=== PATIENT | male | born 1950 | race Caucasian/White ===

== ENCOUNTER 2016-07-01 13:47 | Outpatient (CLI) | payer MEDICARE, OTHER | END 2016-07-01 13:48 | disposition home or self-care (01) | DX: G47.33 Obstructive sleep apnea (adult) (pediatric) (principal) | CPT/HCPCS: 99214; G0463 ==

== ENCOUNTER 2016-08-31 13:16 | Outpatient (CLI) | payer MEDICARE, OTHER | END 2016-08-31 13:17 | disposition home or self-care (01) | DX: G47.33 Obstructive sleep apnea (adult) (pediatric) (principal) | CPT/HCPCS: 99214; G0463 ==

== ENCOUNTER 2017-02-01 15:47 | Outpatient (CLI) | payer MEDICARE, OTHER | END 2017-02-01 15:48 | disposition home or self-care (01) | LOC: SC 15:47 | PROVIDERS: ATTEND Nurse Practitioner Family | DX: G47.33 Obstructive sleep apnea (adult) (pediatric) (principal) | CPT/HCPCS: 99214; G0463; 99212 ==

== ENCOUNTER 2017-07-27 13:15 | Outpatient (CLI) | payer MEDICARE, OTHER | END 2017-07-27 13:16 | disposition home or self-care (01) | LOC: SC 13:15 | PROVIDERS: ATTEND Nurse Practitioner Family | DX: G47.33 Obstructive sleep apnea (adult) (pediatric) (principal) | CPT/HCPCS: 99214; G0463; 99212 ==

== ENCOUNTER 2018-07-27 13:43 | Outpatient (CLI) | payer MEDICARE, OTHER | END 2018-07-27 13:44 | disposition home or self-care (01) | LOC: SC 13:43 | PROVIDERS: ATTEND Nurse Practitioner Family | DX: G47.33 Obstructive sleep apnea (adult) (pediatric) (principal) | CPT/HCPCS: 99213; G0463; 99212 ==

== ENCOUNTER 2019-10-04 11:56 | Outpatient (CLI) | payer MEDICARE, OTHER ==
--- NOTE | 2019-10-04 11:51 | SLEEP CARE CONSULTATION ---
Information from patient questionnaire entered by Sonia Moore. I have reviewed and concur with the information entered by Sonia Moore. This document represents the service I personally performed and the decisions made by me, Angi Sheriff, RN, MSN, GEOPHYSICAL SUPPORT SPECIALIST. History of Present Illness Service Date and Time: 10/04/2019 1130 Previous diagnosis: Moderate, Obstructive Sleep Apnea-Hypopnea Syndrome AHI: 22.4 (in 2016) Reason for follow up: annual (last seen 2019) Equipment type: CPAP Equipment obtained from: [employer] (in [place] - getting supplies as needed) Mask style: Nasal pillows Backup mask available: Yes (old mask ) Last cushion change: 3 weeks ago Prior sleep studies: Yes Year and Where: 2016 - [facility] Type of Sleep Study: Polysomnography CPAP Compliance Data - Data Reviewed with Patient Average duration of nightly device use: 6.25 Compliance rate %: 99.4 (180 days) Current pressure setting (cmH2O): 8-10 Humidity settin Heated hose settin Average residual AHI: 2.7 Average large leak: 10 sec Subjective Patient concerns: denies: aerophagia, mask discomfort, air blowing in eyes, mask leak noise, condensation in mask/hose, nasal congestion, dry mouth, nose, throat, epistaxis, other Observed to snore while using device: No Current pressure setting perceived as: comfortable On therapy, patient: reports: sleeping better, awakening more refreshed, being more awake and alert during the day, more rested overall. denies: drowsiness while driving Initial [place] Sleepiness Scale score: 12 (in 2016) Allergies and Home Medications Home medication list reviewed: No (no changes) Review of Systems Review of systems same as previous: Yes Physical Exam Height: 6 ft 4 in Weight: 298 lb (home weight) Body Mass Index: 36.2 BMI Classification: Obese Impression and Plan 1. Obstructive Sleep Apnea-Hypopnea Syndrome, moderate, with good treatment compliance and good apnea control. On CPAP therapy, the patient has better sleep quality and is more rested overall. Patient is very pleased with CPAP treatment benefit. Currently patients BMI is 36.2 obesity class. I reviewed how obesity increases the risk of apnea, CPAP pressure requirements and overall health risks especially cardiovascular and diabetes. Thus patient is advised to lose weight. A diet consultation can be helpful in achieving optimal weight loss goals. Patient encouraged to discuss their weight loss goals with their PCP and consider a referral to a cma or lpn. The patient's CPAP pressure range should accommodate some weight loss. Symptoms to report for additional pressure adjustment discussed.Patient's apnea severity and rationale for treatment to reduce apnea, improve sleep quality and reduce hypertension, cardiovascular and cerebrovascular events was reviewed. * Continue auto CPAP pressure at 8-10 cmH2O * Notify me if snoring with mask or feeling that the pressure is too much or too little * Attempt to lose weight * Call this office if any problems using CPAP * Return for follow up in 1 year , or sooner if concerns arise Visit Type: Telehealth Phone (to reduce risk of Covid 19 exposure) Patient Location: Home Location of Provider: Home Patient agrees and consents to this telehealth visit type: Yes Patient agrees to have their insurance billed: Yes Time Spent with Patient (minutes): 8 Provider Statement: I spent 100% of the Telehealth Phone Call with the patient with greater than 50% spent counseling the patient and coordination of care.
== END 2019-10-04 11:57 | disposition home or self-care (01) ==
LOC: SC 11:56
PROVIDERS: ATTEND Nurse Practitioner Family
DX: G47.33 Obstructive sleep apnea (adult) (pediatric) (principal); E66.9 Obesity, unspecified; Z68.36 Body mass index [BMI] 36.0-36.9, adult

== ENCOUNTER 2020-10-02 11:00 | Outpatient (CLI) | payer MEDICARE, OTHER ==
--- NOTE | 2020-10-02 11:20 | SLEEP CARE CONSULTATION ---
Information from patient questionnaire entered by Sonia Moore. I have reviewed and concur with the information entered by Sonia Moore. This document represents the service I personally performed and the decisions made by , Glory Rascon ARNP. History of Present Illness Service Date and Time: 10/02/2020 1100 Previous diagnosis: Moderate, Obstructive Sleep Apnea-Hypopnea Syndrome AHI: 22.4 (in 2015) Reason for follow up: annual (last seen 09/2019) Equipment type: CPAP [facility]getting [facility] as needed) Mask style: Nasal pillows Backup mask available: Yes (old mask) Last cushion change: 3 weeks Prior sleep studies: Yes Year and Where: 2016 - [facility] Sleep HPI additional information: ASHU HUSSEIN was diagnosed to have moderate, AHI 22.4, obstructive sleep apnea- hypopnea syndrome and returned today for CPAP therapy annual follow-up. CPAP Compliance Data - Data Reviewed with Patient Average duration of nightly device use: 8 hr 29 days Compliance rate %: 98.9 (180 days) Current pressure setting (cmH2O): 8-10 Humidity settin Heated hose settin Average residual AHI: 2.3 Average large leak: 11 sec Subjective Missed days of use due to: reports: other (power outage) Patient concerns: denies: aerophagia, mask discomfort, air blowing in eyes, mask leak noise, condensation in mask/hose, nasal congestion, dry mouth, nose, throat, epistaxis, other Observed to snore while using device: No Current pressure setting perceived as: comfortable On therapy, patient: reports: sleeping better, awakening more refreshed, being more awake and alert during the day, more rested overall. denies: drowsiness while driving Initial [place] Sleepiness Scale score: 12 (in 2016) Current [place] Sleepiness Scale score: 5 Allergies and Home Medications Home medication list reviewed: Yes (no new meds) Review of Systems Review of systems same as previous: Yes (no changes) Physical Exam Heart Rate: 46 O2 Saturation: 96 Height: 6 ft 4 in Weight: 298 lb Body Mass Index: 36.2 BMI Classification: Obese Impression and Plan 1. Obstructive Sleep Apnea-Hypopnea Syndrome, moderate, with good treatment compliance and good apnea control. On CPAP therapy, the patient has better sleep quality and is more rested overall. He has no issues with using the machine. He is satisfied with his therapy and intends to continue with treatment. I advised him to try to lose weight and he voiced agreement. Currently patients BMI is 36.2. Obesity increases the risk of apnea, CPAP pressure requirements and overall health risks especially cardiovascular and diabetes. Thus patient is advised to lose weight. The patient's CPAP pressure range should accommodate some weight loss. Symptoms to report for additional pressure adjustment discussed. Patient's apnea severity and rationale for treatment to reduce apnea, improve sleep quality and reduce cardiovascular and cerebrovascular events was reviewed. I also reviewed the benefit of consistent device use of CPAP for arrhythmia and gastric reflux. * Continue autoCPAP pressure at 8-10 cmH2O * Notify me if snoring with mask or feeling that the pressure is too much or too little * Attempt to lose weight * Call this office if any problems using CPAP * Return for follow up in 1 year, or sooner if concerns arise Counseling Topics: Spare mask, Weight loss health impact Visit Type: In Office Time Spent with Patient (minutes): 11 Provider Statement: I spent 100% of the Face to Face Visit with the patient with greater than 50% spent counseling the patient and coordination of care.
== END 2020-10-02 11:01 | disposition home or self-care (01) ==
LOC: SC 11:00
PROVIDERS: ATTEND Nurse Practitioner Family
DX: G47.33 Obstructive sleep apnea (adult) (pediatric) (principal); E66.9 Obesity, unspecified; Z68.36 Body mass index [BMI] 36.0-36.9, adult
CPT/HCPCS: 99212; G0463

== ENCOUNTER 2022-01-22 10:24 | Outpatient (CLI) | payer MEDICARE, OTHER ==
[2022-01-22 11:03] VITALS: BP 118/81
--- NOTE | 2022-01-22 11:04 | SLEEP CARE CONSULTATION ---
Information from patient questionnaire entered by Yoana Ray MA. I have reviewed and concur with the information entered by Yoana Ray MA. This document represents the service I personally performed and the decisions made by , Glory Rascon ARNP. History of Present Illness Service Date and Time: 01/22/2022 1024 Previous diagnosis: Moderate, Obstructive Sleep Apnea-Hypopnea Syndrome AHI: 22.4 (in 2016) Reason for follow up: annual (last seen 09/2020) Equipment type: CPAP Equipment obtained from: [employer] (getting supplies as needed) Mask style: Nasal pillows Backup mask available: Yes (old mask) Last cushion change: 1 month Prior sleep studies: Yes Year and Where: 2015 [facility] HPI additional information: ASHU HUSSEIN was diagnosed to have moderate, AHI 22.4, obstructive sleep apnea- hypopnea syndrome and returned today for CPAP therapy annual follow-up. Sleep Study - Results Prior sleep studies: Yes [facility] Compliance Data - Data Reviewed with Patient Average duration of nightly device use: 8 hours 13 minutes Compliance rate %: 98.9 (89/90 days used) Current pressure setting (cmH2O): 8-10 Average residual AHI: 2.9 Average large leak: 13 secs Subjective Missed days of use due to: reports: other (power outages) Patient concerns: denies: aerophagia, mask discomfort, air blowing in eyes, mask leak noise, condensation in mask/hose, nasal congestion, dry mouth, nose, throat, epistaxis, other Observed to snore while using device: No Current pressure setting perceived as: comfortable On therapy, patient: reports: sleeping better, awakening more refreshed, being more awake and alert during the day, more rested overall. denies: drowsiness while driving Initial [place] Sleepiness Scale score: 12 (in 2016) Current [place] Sleepiness Scale score: 7 Allergies and Home Medications Home medication list reviewed: Yes (Tamulosin) Review of Systems Review of systems same as previous: Yes (bladder issues) Physical Exam Vital signs obtained and entered by: LC ROMANO Blood Pressure: 118/81 Cuff size: wrist Heart Rate: 102 O2 Saturation: 99 Height: 6 ft 1.5 in Weight: 301 lb 4 oz Body Mass Index: 39.2 BMI Classification: Obese Impression and Plan 1. Obstructive Sleep Apnea-Hypopnea Syndrome, moderate, with good treatment compliance and good apnea control. On CPAP therapy, the patient has better sleep quality and is more rested overall. Patient has significant improvement of his sleep apnea and is satisfied with current CPAP therapy. He needs a new heated hose but states his DME told him he needs an updated prescription to get this. I will write to update his supplies. Patient denies problems with oral dryness, nasal congestion, epistaxsis, skin irritation or aerophagia. Patient's apnea severity and rationale for treatment to reduce apnea, improve sleep quality and reduce cardiovascular and cerebrovascular events was reviewed. I also reviewed the benefit of consistent device use of CPAP for arrhythmia and gastric reflux. 2. Obesity, unspecified. Patient was ill with an infection in his back and was unable to try to lose weight. Currently patients BMI is 39.2. Obesity increases the risk of apnea, CPAP pressure requirements and overall health risks especially cardiovascular and diabetes. Thus patient is advised to try to lose weight. Weight loss can be done with reducing portion size, reducing refined foods and balancing content with vegetables, fruit and whole grain foods. In addition, patient encouraged to get regular exercise. * Continue auto CPAP pressure at 8-10 cmH2O * Update supplies, needs heated hose * Notify me if snoring with mask or feeling that the pressure is too much or too little * Attempt to lose weight * Call this office if any problems using CPAP * Return for follow up in 1 year, or sooner if concerns arise Counseling Topics: Spare mask, Weight loss health impact Visit Type: In Office Time Spent with Patient (minutes): 20 Provider Statement: I spent 100% of the Face to Face Visit with the patient with greater than 50% spent counseling the patient and coordination of care.
== END 2022-01-22 10:25 | disposition home or self-care (01) ==
LOC: SC 10:24
PROVIDERS: ATTEND Nurse Practitioner Family
DX: G47.33 Obstructive sleep apnea (adult) (pediatric) (principal); E66.9 Obesity, unspecified; Z68.39 Body mass index [BMI] 39.0-39.9, adult
CPT/HCPCS: 99213; G0463; 99212

== ENCOUNTER 2023-01-27 13:46 | Outpatient (CLI) | payer MEDICARE, OTHER ==
--- NOTE | 2023-01-27 14:15 | Sleep Patient Instructions ---
Sleep Center Visit Summary - Patient Visit Information Reason for Visit: Annual visit for PAP therapy - Patient Instructions Additional Instructions: You will continue with CPAP therapy with pressure set at 8-10 cmH2O. A supply prescription will be updated with your DME. We encourage you to continue to try to lose weight. Please follow up with the sleep care office in 1 year. - Clinic Information Contact: [facility] [address] [place] [address] [email or web address] T: [phone]
--- NOTE | 2023-01-27 14:17 | SLEEP CARE CONSULTATION ---
Information from patient questionnaire entered by Pino Lindquist. I have reviewed and concur with the information entered by Pino Lindquist. This document represents the service I personally performed and the decisions made by me, Glory Rascon ARNP. History of Present Illness Service Date and Time: 01/27/2023 1346 Previous diagnosis: Moderate, Obstructive Sleep Apnea-Hypopnea Syndrome AHI: 22.4 (in 2015) Reason for follow up: annual (LAST SEEN 01/2022) Equipment type: CPAP (DREAMSTATION 2) Equipment obtained from: [employer] (getting supplies as needed) Mask style: Nasal pillows Backup mask available: Yes (old mask) Last cushion change: 1 week ago Prior sleep studies: Yes Year and Where: 2015 - [facility] [facility] HPI additional information: ASHU HUSSEIN was diagnosed to have moderate, AHI 22.4, obstructive sleep apnea- hypopnea syndrome and returned today for CPAP therapy annual follow-up. Sleep Study - Results Prior sleep studies: Yes [facility] and [facility] CPAP Compliance Data - Data Reviewed with Patient Average duration of nightly device use: 8 HRS 33 MINS 42SEC Compliance rate %: 99.4 (07/16/22-01/11/23; 179/180 days used) Current pressure setting (cmH2O): 8-10 Average residual AHI: 2.2 Central apnea: 0.1 Obstructive apnea: 0.1 Hypopnea: 2 Average large leak: 1 secs Subjective Patient concerns: denies: aerophagia, mask discomfort, air blowing in eyes, mask leak noise, condensation in mask/hose, nasal congestion, dry mouth, nose, throat, epistaxis Observed to snore while using device: No Current pressure setting perceived as: comfortable On therapy, patient: reports: sleeping better, awakening more refreshed, being more awake and alert during the day, more rested overall. denies: drowsiness while driving Initial [place] Sleepiness Scale score: 12 (in 2015) Current [place] Sleepiness Scale score: 8 (01/27/23) Allergies and Home Medications Known drug allergies: No Drug allergies reviewed: Yes Home medication list reviewed: Yes (as listed) Allergy and home medication list: Home Medications Medication Instructions Recorded Confirmed Last Taken Type Tamsulosin [Flomax] See Rx Instructions .ROUTE .COMPLEX 01/22/22 Unknown History Cholecalciferol (Vitamin D3) See Rx Instructions .ROUTE .COMPLEX 01/27/23 01/27/23 Unknown History [Vitamin D3] Metoprolol Succinate [Toprol Xl] See Rx Instructions .ROUTE .COMPLEX 01/27/23 01/27/23 Unknown History [place]-3/Dha/Epa/Fish Oil [Fish Oil See Rx Instructions .ROUTE .COMPLEX 01/27/23 01/27/23 Unknown History 1,000 mg Softgel] Rivaroxaban [Xarelto] See Rx Instructions .ROUTE .COMPLEX 01/27/23 01/27/23 Unknown History Review of Systems Review of systems same as previous: Yes (no changes) Physical Exam Vital signs obtained and entered by: PINO Osuna MA Blood Pressure: 132/80 (LEFT ARM) Cuff size: regular Heart Rate: 78 O2 Saturation: 97 Height: 6 ft 1.5 in Weight: 311 lb 3.2 oz Body Mass Index: 40.5 BMI Classification: Morbidly Obese Impression and Plan 1. Obstructive Sleep Apnea-Hypopnea Syndrome, moderate, with good treatment compliance and good apnea control. On CPAP therapy, the patient has better sleep quality and is more rested overall. Patient has significant improvement of their sleep apnea and is satisfied with current CPAP therapy. Patient denies problems with oral dryness, nasal congestion, epistaxis, skin irritation or aerophagia. Patient's apnea severity and rationale for treatment to reduce apnea, improve sleep quality and reduce cardiovascular and cerebrovascular events was reviewed. I also reviewed the benefit of consistent device use of CPAP for arrhythmia and gastric reflux. 2. Obesity, unspecified. Currently patients BMI is 40.5. Obesity increases the risk of apnea, CPAP pressure requirements and overall health risks especially cardiovascular and diabetes. Thus patient is advised to lose weight. * Continue auto CPAP pressure at 8-10 cmH2O * Update supplies * Notify me if snoring with mask or feeling that the pressure is too much or too little * Attempt to lose weight * Call this office if any problems using CPAP * Return for follow up in 1 year, or sooner if concerns arise Counseling Topics: Spare mask, Weight loss health impact Prescriptions: Device supplies Visit Type: In Office Time Spent with Patient (minutes): 12 Provider Statement: I spent 100% of the Face to Face Visit with the patient with greater than 50% spent counseling the patient and coordination of care.
[2023-01-27 14:19] VITALS: BP 132/80; O2SAT 97
== END 2023-01-27 13:47 | disposition home or self-care (01) ==
LOC: SC 13:46
PROVIDERS: ATTEND Nurse Practitioner Family
DX: G47.33 Obstructive sleep apnea (adult) (pediatric) (principal); E66.01 Morbid (severe) obesity due to excess calories; Z68.41 Body mass index [BMI] 40.0-44.9, adult
CPT/HCPCS: 99212; G0463

== ENCOUNTER 2024-02-02 12:44 | Outpatient (CLI) | payer MEDICARE, OTHER ==
--- NOTE | 2024-02-02 13:08 | Sleep Patient Instructions ---
Sleep Center Visit Summary - Patient Visit Information Reason for Visit: Annual follow-up - Patient Instructions Additional Instructions: You will continue with CPAP therapy with pressure set at 8-10 cmH2O. A supply prescription will be updated with your DME supplier. We encourage you to continue to try to lose weight. Please follow up with the sleep care office in 1 year. - Clinic Information Contact: [facility] [address] [place] [address] [email or web address] T: [phone]
--- NOTE | 2024-02-02 13:11 | SLEEP CARE CONSULTATION ---
Information from patient questionnaire entered by Pino Lindquist. I have reviewed and concur with the information entered by Pino Lindquist. This document represents the service I personally performed and the decisions made by me, Glory Rascon ARNP. History of Present Illness Service Date and Time: 02/02/2024 1244 Previous diagnosis: Moderate, Obstructive Sleep Apnea-Hypopnea Syndrome AHI: 22.4 (in 2015) Reason for follow up: annual (LAST SEEN 01/2023) Equipment type: CPAP (DREAMSTATION 2) Equipment obtained from: [employer] (getting supplies as needed) Mask style: Nasal pillows Backup mask available: Yes Last cushion change: couples weeks Prior sleep studies: Yes Year and Where: 2015 - [facility] HPI additional information: ASHU HUSSEIN was diagnosed to have moderate, AHI 22.4, obstructive sleep apnea- hypopnea syndrome and returned today for CPAP therapy annual follow-up. Sleep Study - Results Prior sleep studies: Yes [facility] Compliance Data - Data Reviewed with Patient Average duration of nightly device use: 8 HRS 45 MINS 23 SECS Compliance rate %: 88.9 (08/04/23-01/30/24; 160/180 days used) Current pressure setting (cmH2O): 8-10 Average residual AHI: 2.0 Central apnea: 0 Obstructive apnea: 0.1 Hypopnea: 1.9 Average large leak: 0 secs Compliance data discussion: He says he has another machine when he visits his daughters that he uses. Subjective Patient concerns: denies: aerophagia, mask discomfort, air blowing in eyes, mask leak noise, condensation in mask/hose, nasal congestion, dry mouth, nose, throat, epistaxis Observed to snore while using device: No Current pressure setting perceived as: comfortable On therapy, patient: reports: sleeping better, awakening more refreshed, being more awake and alert during the day, more rested overall. denies: drowsiness while driving Initial [place] Sleepiness Scale score: 12 (in 2015) Current [place] Sleepiness Scale score: 4 (02/02/24) Allergies and Home Medications Known drug allergies: No Drug allergies reviewed: Yes Home medication list reviewed: Yes (no changes) Allergy and home medication list: Allergies No Known Drug Allergies Allergy (Verified 02/02/24 12:50) Review of Systems Review of systems same as previous: Yes (NO CHANGE) Physical Exam Vital signs obtained and entered by: PINO Osuna MA Blood Pressure: 128/85 (LEFT ARM) Cuff size: long Heart Rate: 75 O2 Saturation: 99 Height: 6 ft 1.5 in Weight: 311 lb Body Mass Index: 40.4 BMI Classification: Morbidly Obese Impression and Plan 1. Obstructive Sleep Apnea-Hypopnea Syndrome, moderate, with good treatment compliance and good apnea control. On CPAP therapy, the patient has better sleep quality and is more rested overall. Patient has significant improvement of their sleep apnea and is satisfied with current CPAP therapy. Patient denies problems with oral dryness, nasal congestion, epistaxis, skin irritation or aerophagia. Patient's apnea severity and rationale for treatment to reduce apnea, improve sleep quality and reduce cardiovascular and cerebrovascular events was reviewed. I also reviewed the benefit of consistent device use of CPAP for arrhythmia, [gastric reflux. 2. Obesity, unspecified. Currently patients BMI is 40.4. Obesity increases the risk of apnea, CPAP pressure requirements and overall health risks especially cardiovascular and diabetes. Thus patient is advised to lose weight. * Continue auto CPAP pressure at 8-10 cmH2O * Update supply prescription * Notify me if snoring with mask or feeling that the pressure is too much or too little * Attempt to lose weight * Call this office if any problems using CPAP * Return for follow up in 12 months, or sooner if concerns arise Continue with device pressure at (cmH2O): 8-10 Counseling Topics: Spare mask, Weight loss health impact Prescriptions: Device supplies Follow up with Sleep Care in: 1 year Visit Type: In Office Time Spent with Patient (minutes): 14 Provider Statement: I spent 100% of the Face to Face Visit with the patient with greater than 50% spent counseling the patient and coordination of care.
[2024-02-02 13:19] VITALS: BP 128/85; O2SAT 99
== END 2024-02-02 12:45 | disposition home or self-care (01) ==
LOC: SC 12:44
PROVIDERS: ATTEND Nurse Practitioner Family
DX: G47.33 Obstructive sleep apnea (adult) (pediatric) (principal); E66.01 Morbid (severe) obesity due to excess calories; Z68.41 Body mass index [BMI] 40.0-44.9, adult
CPT/HCPCS: 99212; G0463